=== PATIENT | female | born 1960 | race African-American/Black ===

== ENCOUNTER 2019-01-08 06:33 | Day surgery (SDC) | payer MEDICARE, MEDICAID ==
--- NOTE | 2019-01-05 08:52 | Opthalmology H&P ---
Ophthalmology H&P H&P Chief Complaint: decreased vision in left eye HPI Vision Affects Ability to: read, manage personal affairs HPI Narrative Blurry Vision Exam Visual Acuity: OD 20/50 OS 20/50 Tension: OD 23 OS 26 Eye Exam: normal OU: external exam, palpebral fissure-width, marginal reflex distance, levator function, corneas, anterior chambers, fundus exam; findings: lens - Cortical Cataract OS Assessment/Plan Treatment Plan: cataract extraction w/ lens implant Goals of Treatment: improvement of vision, enhance quality of life Attestation Attestation The risks and benefits of the surgery as well as alternative procedures were explained to the patient in detail. Papo Pedro MD Jan 05, 2019 08:52
--- NOTE | 2019-01-05 08:55 | Pre-Procedure Note/Attestation ---
Pre-Procedure Note/Attestation Complete Prior to Procedure Planned Procedure: left Procedure Narrative: Cataract Extraction With IOL Left Eye Indications for Procedure Pre-Operative Diagnosis: Cortical Cataract Left Eye Attestation I attest that I discussed the nature of the procedure; its benefits; risks and complications; and alternatives (and the risks and benefits of such alternatives ), prior to the procedure, with the patient (or the patient's legal product support representative). I attest that, if there was a reasonable possibility of needing a blood transfusion, the patient (or the patient's legal product support representative) was given the [facility] standardized written summary, pursuant to the Kier[place] Blood Safety Act ([place] Health and Safety Code # 1645, as amended). I attest that I re-evaluated the patient just prior to the surgery and that there has been no change in the patient's H&P, except as documented below: Papo Pedro MD Jan 05, 2019 08:55
[~2019-01-08] VITALS: Ht 157.5 cm; Wt 53.5 kg
[2019-01-08] VITALS (10 sets, daily range): BP systolic 100–162; BP diastolic 50–79
[2019-01-08] MEDS ORDERED: Pilocarpine 1% Opth 15ml Soln ONE (07:00)
[2019-01-08] MEDS ORDERED: Tetracaine 0.5% Opth 4ml Soln LEFT EYE ONE (07:00)
[2019-01-08] MEDS ORDERED: Akten 3.5% 1ml Btl LEFT EYE ONE (07:00)
[2019-01-08] MEDS ORDERED: Dexamethasone 4mg/ml vial ONE (07:00)
[2019-01-08] MEDS ORDERED: Maxitrol Opth Oint 3.5gm ONE (07:00)
[2019-01-08] MEDS ORDERED: Proparacaine 0.5% Opth Soln 15ml LEFT EYE ONE (07:00)
[2019-01-08] MEDS ORDERED: Pred Forte 1% Opth Susp 1ml ONE (07:00)
[2019-01-08] MEDS: Phenylephrine 10% Opth Soln 5ml LEFT EYE SCH ×3 (08:31→08:45)
[2019-01-08] MEDS: Tropicamide 1% Opth 15ml Soln LEFT EYE SCH ×3 (08:31→08:44)
[2019-01-08] MEDS: Cyclopentolate 1% Opth Sol 2ml LEFT EYE SCH ×3 (08:32→08:45)
[2019-01-08] MEDS: Tobramycin Op Soln 0.3% 5ml LEFT EYE SCH ×3 (08:32→08:45)
[2019-01-08] MEDS: Diclofenac Sod 0.1% Op Soln LEFT EYE SCH ×3 (08:32→08:45)
[2019-01-08] MEDS ORDERED: METOPROLOL SUCC25 MG ORAL (08:44)
[2019-01-08] MEDS ORDERED: AMIODARONE HCL100 MG ORAL (08:44)
[2019-01-08] MEDS ORDERED: PANTOPRAZOLE SO40 MG ORAL (08:44)
[2019-01-08] MEDS ORDERED: WARFARIN SODIUM3 MG ORAL (08:44)
[2019-01-08] MEDS ORDERED: LOSARTAN POTASS50 MG ORAL (08:44)
[2019-01-08] MEDS ORDERED: EPINEPHrine 1mg/1ml Amp ONE (09:04)
[2019-01-08] MEDS ORDERED: BSS 15ml BTL ONE (09:04)
[2019-01-08] MEDS ORDERED: BSS 500ml btl ONE (09:04)
[2019-01-08] MEDS ORDERED: Sodium Hyaluronate 14 mg/ml 0.85ml ONE (09:05)
[2019-01-08] MEDS ORDERED: Povidone-Iodine 5% opth solution ONE (09:05)
[2019-01-08] MEDS ORDERED: DiphenhydrAMINE 50mg/ml Inj IVP PRN (09:30)
--- NOTE | 2019-01-08 09:30 | Anethesia Preoperative Eval ---
Anesthesia Pre-op PMH/ROS General Date of Evaluation: Jan 08, 2019 Anesthesiologist: Aleja ASA Score: ASA 3 Mallampati Score Class I : Soft palate, uvula, fauces, pillars visible Class II: Soft palate, uvula, fauces visible Class III: Soft palate, base of uvula visible Class IV: Only hard plate visible Mallampati Classification: Class II Surgeon: Mayela Diagnosis: Left cataract Surgical Procedure: Left cataract extraction with IOL Anesthesia History: none Family History: no anesthesia problems Allergies: Coded Allergies: ERYTHROMYCIN BASE (Verified Allergy, Intermediate, itching, 01/08/19) Medications: see eMAR Patient NPO?: Yes NPO Date: Jan 07, 2019 NPO Time: 22:00 Past Medical History Cardiovascular: Reports: HTN, CAD - s/p CABG, other - HLD; Denies: OK, valve dz, arrhythmia Pulmonary: Denies: asthma, COPD, JESSY, other Gastrointestinal/Genitourinary: Reports: ESRD - dialysis on m,w,f; Denies: GERD, CRI, other Neurologic/Psychiatric: Denies: dementia, CVA, depression/anxiety, TIA, other Endocrine: Reports: DM; Denies: hypothyroidism, steroids, other HEENT: Reports: cataract (L), cataract (R); Denies: glaucoma, [place] (L), [place] (R), other Hematology/Immune: Reports: anemia - chronic; Denies: DVT, bleeding disorder, other Musculoskeletal/Integumentary: Denies: OA, RA, DJD, DDD, edema, other PSxH Narrative: CABG, left av fistula Anesthesia Pre-op Phys. Exam Physician Exam Last Vital Signs Date Time Temp Pulse Resp B/P (MAP) Pulse Ox O2 Delivery O2 Flow Rate FiO2 01/08/19 08:29 Room Air 01/08/19 08:28 97.6 73 18 162/79 100 Constitutional: NAD Cardiovascular: RRR Respiratory: CTA Airway Exam Mallampati Score: Class II Anesthesia Pre-op A/P Labs Chemistry Test 01/08/19 08:30 Potassium Level 3.8 MMOL/L (3.5-5.1) Studies Pre-op Studies: EKG - LBBB Risk Assessment & Plan Assessment: ASA III Plan: MAC Status Change Before Surgery: No Pre-Antibiotics Drug: N/A Tracee Adams MD Jan 08, 2019 09:30
[2019-01-08] MEDS ORDERED: LR 1000ml ONE (10:08)
[2019-01-08] MEDS ORDERED: fentaNYL 100 mcg/2 mL IV ONE (10:08)
[2019-01-08] MEDS ORDERED: Midazolam 2mg/2ml Inj ONE (10:08)
[2019-01-08] MEDS ORDERED: Lidocaine 1% MPF 10mg/ml 5ml ONE (10:08)
--- NOTE | 2019-01-08 10:47 | Immediate Post-Op Evaluation ---
Immediate Post-Op Evalulation Immediate Post-Op Evalulation Procedure: Left cataract extraction with IOL Date of Evaluation: Jan 08, 2019 Time of Evaluation: 10:50 IV Fluids: 100 Blood Products: 0 Estimated Blood Loss: 0 Urinary Output: 0 Blood Pressure Systolic: 129 Blood Pressure Diastolic: 64 Pulse Rate: 74 Respiratory Rate: 16 O2 Sat by Pulse Oximetry: 100 Temperature (Fahrenheit): 98.4 Pain Score (1-10): 0 Nausea: No Vomiting: No Complications 0 Patient Status: awake, reacts, patent, none Hydration Status: adequate Drug: N/A Tracee Adams MD Jan 08, 2019 10:47
--- NOTE | 2019-01-08 10:48 | 48 Hour Post Anesthesia Eval ---
Post Anesthesia Evaluation Procedure: Left cataract extraction with IOL Date of Evaluation: Jan 08, 2019 Airway: patent Nausea: No Vomiting: No Pain Intensity: 0 Hydration Status: adequate Cardiopulmonary Status: at baseline Mental Status/LOC: patient returned to baseline Post-Anesthesia Complications: 0 Follow-up care needed: ready to discharge Tracee Adams MD Jan 08, 2019 10:48
--- NOTE | 2019-01-08 11:40 | NUR ---
NURSE NOTES: Spoke with Dr. Clif Murphy regarding the change in blood pressure from pre-op levels. No new orders received. Okay to discharge from recovery room. Patient is resting comfortably in bed with no pain and states she took a blood pressure medication this morning prior to arrival at the hospital. Mean Arterial Pressure and EKG rhythm and oxygen saturation are all stable. Patient does not appear to be in acute distress and will continue to monitor.
--- NOTE | 2019-01-09 12:51 | Brief Operative Note ---
Immediate Post Operative Note Operative Note Chief Complaint: blurry vision Pre-op Diagnosis: Cortical Cataract Left Eye Procedure: phaco with IOL Post-op Diagnosis: Pseudophakia Post-op Diagnosis: same as pre-op Findings: consistent w/pre-op dx studies Surgeon: Mayela Anesthesiologist: Herbie Anesthesia: MAC Specimen: none Complications: none Condition: stable Fluids: LR Estimated Blood Loss: none Drains: none Implant(s) used?: Yes Papo Pedro MD Jan 09, 2019 12:51
--- NOTE | 2019-01-09 12:52 | Operative Note - PDOC ---
Operative Note Operative Note Date of Operation/Procedure: Jan 08, 2019 Chief Complaint: blurry vision Pre-op Diagnosis: Cortical Cataract Left Eye Procedure: phaco with IOL Post-op Diagnosis: Pseudophakia Post-op Diagnosis: same as pre-op Operative Findings: consistent w/pre-op dx studies Surgeon: Mayela Anesthesiologist: Herbie Anesthesia: MAC Specimen: none Complications: none Condition: stable Fluids: LR Estimated Blood Loss: none Drains: none Implant(s) used?: Yes Indications for Procedure cataract Description of Procedure This patient has been complaining visually significant cataract in the affected eye with the best corrected visual acuity under moderate glare conditions worse. The patient complains of difficulties with glare in performing activities of daily living and wants to manage personal affairs with comfort and accuracy and see well enough to move with safety at home and outdoors. The risks, benefits and alternatives of the procedure were discussed with the patient in the office prior to scheduling surgery. All questions from the patient were answered after the surgical procedure was explained in detail. The risks of the procedure as explained to the patient include, but are not limited to, pain, infection, bleeding, loss of vision, retinal detachment, need for further surgery, loss of lens nucleus, double vision, etc. Alternative procedures were discussed which include, to do nothing or seek a second opinion. Informed consent for this procedure was obtained from the patient. The patient was referred to a primary care physician for a cardiopulmonary clearance prior to surgery, after proper evaluation was done patient was properly scheduled for outpatient surgery. The patient was brought to the operating room where the anesthesiologist established I.V. lines and cardiac monitoring leads. Mild intravenous sedation was administered. The patient was then prepared with a 5% solution of povidone -iodine to the conjunctival fornix and lashes, and a 5% solution of povidone- iodine to the lids and periorbital skin. The patient was then draped in the usual sterile fashion. A lid speculum was then placed in the operative eye. A keratome blade was then used to create a biplanar incision into the anterior chamber. Viscoelastics was then instilled into the anterior chamber. A capsulorrhexis was then fashioned with an utrata forceps. BSS and a G 27 cannula was used for hydrodissection and hydro delineation the lens nucleus . Paracentesis incision was made at 3 o'clock with sharp blade. The phacoemulsification unit, after being properly adjusted and tested, was then used to emulsify the nucleus followed by residual cortical material being aspirated with the irrigation and aspiration unit. [place] was then instilled into the anterior chamber. The corneal wound was then enlarged to the size of the optic with the preston keratome blade. The intraocular lens was then inspected for right power and size and thought to be satisfactory. Then the lens was gently placed in the capsular bag. Positioning within the capsular bag was confirmed by direct visualization. Optic centration was accomplished with a Sinskey hook. Viscoelastics was removed from the anterior chamber using the irrigation and aspiration unit. The corneal wound was then tested for leaks and none were found. The lid speculum were then removed. Sponge and needle counts were correct. An eye patch and shield were placed over the operative eye. The patient was taken to the recovery room in stable condition. There were no complications. The patient tolerated the procedure well. The patient was then transferred to the ambulatory surgery unit in stable and satisfactory condition , was given detailed written instructions and asked to follow up in the office the next day. Papo Pedro MD Jan 09, 2019 12:52
== END 2019-01-08 12:35 | disposition home or self-care (01) ==
LOC: SUR 06:33
DX: H25.012 Cortical age-related cataract, left eye (principal); I11.9 Hypertensive heart disease without heart failure; Z95.1 Presence of aortocoronary bypass graft; E78.5 Hyperlipidemia, unspecified; E11.9 Type 2 diabetes mellitus without complications; I44.7 Left bundle-branch block, unspecified
CPT/HCPCS: 36415; 66984; 82962; 84132; J0171; J1100; J2250; J3010; V2632; 94003; 94150

== ENCOUNTER 2019-01-29 06:34 | Day surgery (SDC) | payer MEDICARE, MEDICAID ==
--- NOTE | 2019-01-25 17:03 | Pre-Procedure Note/Attestation ---
Pre-Procedure Note/Attestation Complete Prior to Procedure Planned Procedure: right Procedure Narrative: Cataract Extraction With Intraocular Lens Right Eye Indications for Procedure Pre-Operative Diagnosis: Nuclear Sclerotic Cataract Right Eye Attestation I attest that I discussed the nature of the procedure; its benefits; risks and complications; and alternatives (and the risks and benefits of such alternatives ), prior to the procedure, with the patient (or the patient's legal product representative). I attest that, if there was a reasonable possibility of needing a blood transfusion, the patient (or the patient's legal product representative) was given the [facility] standardized written summary, pursuant to the Kieran [place] Blood Safety Act ([place] Health and Safety Code # 1645, as amended). I attest that I re-evaluated the patient just prior to the surgery and that there has been no change in the patient's H&P, except as documented below: Papo Pedro MD January 25, 2019 17:03
--- NOTE | 2019-01-25 17:06 | Opthalmology H&P ---
Ophthalmology H&P H&P Chief Complaint: decreased vision in right eye HPI Vision Affects Ability to: read, focus/use eyes together, manage personal affairs HPI Narrative Blurry Vision Exam Visual Acuity: OD 20/400 OS 20/40 Tension: OD 17 OS 18 Eye Exam: normal OU: external exam, palpebral fissure-width, marginal reflex distance, levator function, corneas, anterior chambers, lens - NUCLEAR SCLEROTIC /CORTICAL CATARACT RIGHT EYE, fundus exam; findings: lens - NUCLEAR SCLEROTIC/ CORTICAL CATARACT RIGHT EYE Assessment/Plan Treatment Plan: cataract extraction w/ lens implant Goals of Treatment: improvement of vision, enhance quality of life Attestation Attestation The risks and benefits of the surgery as well as alternative procedures were explained to the patient in detail. Papo Pedro MD January 25, 2019 17:06
[2019-01-29] VITALS (9 sets, daily range): BP systolic 143–188; BP diastolic 69–89
[~2019-01-29] VITALS: Ht 157.5 cm; Wt 53.5 kg
[~2019-01-29 06:34] MED LIST: AMIODARONE HCL100 MG ORAL; LOSARTAN POTASS50 MG ORAL; METOPROLOL SUCC25 MG ORAL; PANTOPRAZOLE SO40 MG ORAL; WARFARIN SODIUM3 MG ORAL
[2019-01-29] MEDS ORDERED: Pred Forte 1% Opth Susp 1ml ONE (07:00)
[2019-01-29] MEDS ORDERED: Tetracaine 0.5% Opth 4ml Soln RIGHT EYE ONE (07:00)
[2019-01-29] MEDS ORDERED: Maxitrol Opth Oint 3.5gm ONE (07:00)
[2019-01-29] MEDS ORDERED: Dexamethasone 4mg/ml vial ONE (07:00)
[2019-01-29] MEDS ORDERED: Akten 3.5% 1ml Btl RIGHT EYE ONE (07:00)
[2019-01-29] MEDS ORDERED: Proparacaine 0.5% Opth Soln 15ml RIGHT EYE ONE (07:00)
[2019-01-29] MEDS ORDERED: Pilocarpine 1% Opth 15ml Soln ONE (07:00)
--- NOTE | 2019-01-29 07:30 | NUR ---
Unable to start IV fluids. Pheripheral veins unable to access. Bella in surgery and Grudeep RN notified.
[2019-01-29] MEDS: Tobramycin Op Soln 0.3% 5ml RIGHT EYE SCH ×3 (07:38→08:04)
[2019-01-29] MEDS: Tropicamide 1% Opth 15ml Soln RIGHT EYE SCH ×3 (07:39→08:04)
[2019-01-29] MEDS: Diclofenac Sod 0.1% Op Soln RIGHT EYE SCH ×3 (07:40→08:04)
[2019-01-29] MEDS: Phenylephrine 10% Opth Soln 5ml RIGHT EYE SCH ×3 (07:40→08:04)
[2019-01-29] MEDS: Cyclopentolate 1% Opth Sol 2ml RIGHT EYE SCH ×3 (07:40→08:04)
[2019-01-29] MEDS ORDERED: EPINEPHrine 1mg/1ml Amp ONE (08:24)
[2019-01-29] MEDS ORDERED: BSS 500ml btl ONE (08:24)
[2019-01-29] MEDS ORDERED: Povidone-Iodine 5% opth solution ONE (08:25)
[2019-01-29] MEDS ORDERED: Sodium Hyaluronate 14 mg/ml 0.85ml ONE (08:25)
[2019-01-29] MEDS ORDERED: BSS 15ml BTL ONE ×2 (08:25→10:19)
[2019-01-29] MEDS ORDERED: fentaNYL 100 mcg/2 mL IV PRN ×2 (09:30)
--- NOTE | 2019-01-29 09:39 | Anethesia Preoperative Eval ---
Anesthesia Pre-op PMH/ROS General Date of Evaluation: January 29, 2019 Time of Evaluation: 09:00 Anesthesiologist: griselda ASA Score: ASA 3 Mallampati Score Class I : Soft palate, uvula, fauces, pillars visible Class II: Soft palate, uvula, fauces visible Class III: Soft palate, base of uvula visible Class IV: Only hard plate visible Mallampati Classification: Class II Surgeon: gia Diagnosis: cataract Surgical Procedure: cataract removal Anesthesia History: none Family History: no anesthesia problems Allergies: Coded Allergies: ERYTHROMYCIN BASE (Verified Allergy, Intermediate, itching, 01/08/19) Medications: see eMAR Patient NPO?: Yes NPO Date: January 29, 2019 Past Medical History Cardiovascular: Reports: HTN, CAD - s/p CABG on coumadin inr 1.0 Pulmonary: Denies: asthma, COPD, JESSY, other Gastrointestinal/Genitourinary: Reports: GERD, ESRD - MWF Neurologic/Psychiatric: Denies: dementia, CVA, depression/anxiety, TIA, other Endocrine: Reports: DM; Denies: hypothyroidism, steroids, other HEENT: Reports: cataract (L), cataract (R) Hematology/Immune: Denies: anemia, DVT, bleeding disorder, other Musculoskeletal/Integumentary: Denies: OA, RA, DJD, DDD, edema, other PSxH Narrative: cabg Anesthesia Pre-op Phys. Exam Physician Exam Last Vital Signs Date Time Temp Pulse Resp B/P (MAP) Pulse Ox O2 Delivery O2 Flow Rate FiO2 01/29/19 07:57 Room Air 01/29/19 07:42 97.5 56 18 156/72 98 Constitutional: NAD Neurologic: CN 2-12 intact Cardiovascular: RRR Respiratory: CTA Gastrointestinal: S/NT/ND Airway Exam Mallampati Classification 2 Mallampati Score: Class II MO: full Teeth: missing, broken, loose - lower Dentures: upper, lower Anesthesia Pre-op A/P Labs Coagulation Test 01/29/19 09:05 Prothrombin Time 10.9 SEC (9.30-11.50) Prothromb Time International Ratio 1.0 (0.9-1.1) Chemistry Test 01/29/19 07:15 Potassium Level 4.2 MMOL/L (3.5-5.1) Studies Pre-op Studies: EKG - sr Risk Assessment & Plan Plan: mac Pre-Antibiotics Drug: none Sada Carlson CRNA January 29, 2019 09:39
[2019-01-29] MEDS ORDERED: Midazolam 2mg/2ml Inj ONE (10:01)
[2019-01-29] MEDS ORDERED: fentaNYL 100 mcg/2 mL IV ONE (10:01)
--- NOTE | 2019-01-29 10:49 | Immediate Post-Op Evaluation ---
Immediate Post-Op Evalulation Immediate Post-Op Evalulation Procedure: cataract extraction Date of Evaluation: January 29, 2019 Time of Evaluation: 10:49 IV Fluids: 300 Blood Pressure Systolic: 180 Blood Pressure Diastolic: 70 Pulse Rate: 74 Respiratory Rate: 14 O2 Sat by Pulse Oximetry: 99 Temperature (Fahrenheit): 97.1 Nausea: Yes Vomiting: No Patient Status: awake, reacts, patent, nausea - BS= 66; [place] [employer] Hydration Status: adequate Drug: none Sada Carlson CRNA January 29, 2019 10:49
[2019-01-29] MEDS ORDERED: Metoclopramide 10mg/2ml Inj ONE (10:58)
[2019-01-30 07:16] VITALS: BP 143/69
--- NOTE | 2019-01-30 07:16 | 48 Hour Post Anesthesia Eval ---
Post Anesthesia Evaluation Procedure: cataract extraction Date of Evaluation: January 30, 2019 Time of Evaluation: 07:15 Blood Pressure Systolic: 143 0: 69 Pulse Rate: 57 Respiratory Rate: 14 O2 Sat by Pulse Oximetry: 98 Airway: patent Nausea: No Vomiting: No Hydration Status: adequate Cardiopulmonary Status: stable Mental Status/LOC: patient returned to baseline Follow-up Care/Observations: na Post-Anesthesia Complications: none Follow-up care needed: N/A Sada Carlson CRNA January 30, 2019 07:16
--- NOTE | 2019-01-31 11:21 | Brief Operative Note ---
Immediate Post Operative Note Operative Note Chief Complaint: Blurry vison right eye Pre-op Diagnosis: Nuclear Sclerotic Cataract Right Eye Procedure: Cataract Extraction With IOL Right Eye Post-op Diagnosis: Pseudo OD Post-op Diagnosis: same as pre-op Surgeon: Papo Pedro MD Anesthesiologist: Sada Portillo CRNA Anesthesia: MAC Specimen: none Complications: none Condition: stable Fluids: LR Estimated Blood Loss: none Drains: none Implant(s) used?: Yes - IOL Papo Pedro MD January 31, 2019 11:21
--- NOTE | 2019-01-31 11:25 | Operative Note - PDOC ---
Operative Note Operative Note Date of Operation/Procedure: January 29, 2019 Chief Complaint: Blurry vison right eye Pre-op Diagnosis: Nuclear Sclerotic Cataract/Cortical Right Eye Procedure: Cataract Extraction With IOL Right Eye Post-op Diagnosis: Pseudo OD Post-op Diagnosis: same as pre-op Surgeon: Papo Pedro MD Anesthesiologist: Sada Portillo CRNA Anesthesia: MAC Specimen: none Complications: none Condition: stable Fluids: LR Estimated Blood Loss: none Drains: none Implant(s) used?: Yes - IOL Indications for Procedure Nuclear Sclerotic Cataract/Cortical Description of Procedure This patient has been complaining visually significant cataract in the right eye with the best corrected visual acuity of 20/400 under moderate glare conditions worse. The patient complains of difficulties with glare in performing activities of daily living and wants to manage personal affairs with comfort and accuracy and see well enough to move with safety at home and outdoors. The risks, benefits and alternatives of the procedure were discussed with the patient in the office prior to scheduling surgery. All questions from the patient were answered after the surgical procedure was explained in detail. The risks of the procedure as explained to the patient include, but are not limited to, pain, infection, bleeding, loss of vision, retinal detachment, need for further surgery, loss of lens nucleus, double vision, etc. Alternative procedures were discussed which include, to do nothing or seek a second opinion. Informed consent for this procedure was obtained from the patient. The patient was referred to a primary care physician for a cardiopulmonary clearance prior to surgery, after proper evaluation was done patient was properly scheduled for outpatient surgery. The patient was brought to the operating room where the anesthesiologist established I.V. lines and cardiac monitoring leads. Mild intravenous sedation was administered. The patient was then prepared with a 5% solution of povidone -iodine to the conjunctival fornix and lashes, and a 5% solution of povidone- iodine to the lids and periorbital skin. The patient was then draped in the usual sterile fashion. A lid speculum was then placed in the operative eye. A keratome blade was then used to create a biplanar incision into the anterior chamber. Viscoelastics was then instilled into the anterior chamber. A curvilinear capsulorrhexis was then fashioned with an utrata forceps. A BSS was used with G-27 cannula was used to hydrodissect and hydrodelineate the lens nucleus. Paracentesis incision was made at 9 o'clock with sharp blade. The phacoemulsification unit, after being properly adjusted and tested, was then used to emulsify the lens nucleus and residual cortical material was aspirated with the irrigation and aspiration unit. Vioscoelastic n was then instilled into the anterior chamber. The corneal wound was then enlarged to the size of the optic with the preston keratome blade. The intraocular lens was then inspected for right power and size and thought to be satisfactory. Then the lens was gently placed in the capsular bag. Positioning within the capsular bag was confirmed by direct visualization. Optic centration was accomplished with a Sinskey hook. Viscoelastics was removed from the anterior chamber using the irrigation and aspiration unit. The corneal wound was then tested for leaks and none were found. The lid speculum were then removed. Sponge and needle counts were correct. An eye patch and shield were placed over the operative eye. The patient was taken to the recovery room in stable condition. There were no complications. The patient tolerated the procedure well. The patient was then transferred to the ambulatory surgery unit in stable and satisfactory condition , was given detailed written instructions and asked to follow up in the office the next day. Papo Pedro MD January 31, 2019 11:25
== END 2019-01-29 12:15 | disposition home or self-care (01) ==
LOC: SUR 06:34
DX: H25.11 Age-related nuclear cataract, right eye (principal); H25.011 Cortical age-related cataract, right eye; Z95.1 Presence of aortocoronary bypass graft; E11.9 Type 2 diabetes mellitus without complications; I13.11 Hypertensive heart and chronic kidney disease without heart failure, with stage 5 chronic kidney disease, or end stage renal disease; E11.22 Type 2 diabetes mellitus with diabetic chronic kidney disease; N18.6 End stage renal disease; Z99.2 Dependence on renal dialysis; Z88.8 Allergy status to other drugs, medicaments and biological substances
CPT/HCPCS: 36415; 66984; 82962; 84132; 85610; J0171; J1100; J2250; J2405; J2765; J3010; J3370; V2632; 94003; 94150